=== PATIENT | female | born 1985 | race Caucasian/White ===

== ENCOUNTER 2016-12-09 08:58 | Emergency (ER) | payer OTHER ==
[2016-12-09 09:04] VITALS: TEMP 98.1; BMI 47.0
--- NOTE | 2016-12-09 09:28 | PDOC ---
History of Present Illness <Yevgeniy Grady - Last Filed: 12/09/16 14:23> - General History Source: Patient, Family Exam Limitations: No Limitations - History of Present Illness Initial Comments: 12/09/16 09:53 The patient is a 31 year old female with no significant past medical history, presenting to the Emergency Department with left arm numbness. The patient reports at 4:30AM she started experiencing left arm numbness, chest pressure, and difficulty breathing which woke her from sleep. She reports that she sat up from bed, and the change in position relieved her chest pressure and difficulty breathing. She reports that she continues to have numbness in the left arm, and tingling at the left fingers. She admits to taking a baby Aspirin at 4:30AM. She admits that she has not seen a doctor or PCP for years. She denies having the flu shot this season. The patients mother states that the patients grandmother and mother both have hypercholesterolemia and heart problems. The patients mother states that she had stents placed some time in her 40s. The patient denies palpitations, and diaphoresis. Patient denies nausea, vomiting, and diarrhea. Patient denies headache, dizziness, and change in vision. Patient denies change in strength or sensation to the face, right upper extremity, and lower extremities. Patient denies cough, fever, and chills. Past Medical Hx: hiatal hernia, enlarged liver and spleen Familial Hx: maternal cardiac stents in 40s, hypercholesterolemia <Rahel Villareal - Last Filed: 12/09/16 14:39> - General Chief Complaint: Pain Stated Complaint: CHEST PAIN/LT ARM NUMB Time Seen by Provider: 12/09/16 09:27 Past History - Past Medical History GI Disorders: Yes (HIATAL HERNIA) Disorders: (MOM DENIES PT HAVING ENLARGED LIVER AND SPLEEN) HTN: Yes (NO MEDS) Liver Disease: Yes (ENLARGED LIVER AND SPLEEN) - Immunization History Td Vaccination: Yes Immunization Up to Date: Yes - Psycho/Social/Smoking Cessation Hx Anxiety: No Suicidal Ideation: No Smoking Status: No Smoking History: Never smoked Have you smoked in the past 12 months: No Number of Cigarettes Smoked Daily: 0 Information on smoking cessation initiated: No Hx Alcohol Use: No Drug/Substance Use Hx: No Substance Use Type: None Hx Substance Use Treatment: No <Yevgeniy Grady - Last Filed: 12/09/16 14:23> <Rahel Villareal - Last Filed: 12/09/16 14:39> - Past Medical History Allergies/Adverse Reactions: Allergies Allergy/AdvReac Type Severity Reaction Status Date / Time No Known Drug Allergies Allergy Verified 12/09/16 09:00 Home Medications: Ambulatory Orders Pantoprazole Sodium 40 mg PO DAILY 12/09/16 Review of Systems - Review of Systems Able to Perform ROS?: Yes Comments:: 12/09/16 09:54 GENERAL/CONSTITUTIONAL: No fever or chills. No weakness. HEAD, EYES, EARS, NOSE AND THROAT: No change in vision. No ear pain or discharge. No sore throat. CARDIOVASCULAR: No chest pain or palpitations. RESPIRATORY: + orthopnea. No cough, wheezing, or hemoptysis. GASTROINTESTINAL: No nausea, vomiting, diarrhea or constipation. GENITOURINARY: No dysuria, frequency, or change in urination. MUSCULOSKELETAL: No joint or muscle swelling or pain. No neck or back pain. SKIN: No rash NEUROLOGIC: + left arm numbess, + tingling to left fingers. No headache, vertigo , loss of consciousness, or change in strength. ENDOCRINE: No increased thirst. No abnormal weight change. HEMATOLOGIC/LYMPHATIC: No anemia, easy bleeding, or history of blood clots. ALLERGIC/IMMUNOLOGIC: No hives or skin allergy. <Rahel Villareal - Last Filed: 12/09/16 14:39> *Physical Exam - Vital Signs Last Vital Signs Temp Pulse Resp BP Pulse Ox 98.1 F 76 18 143/76 100 12/09/16 09:00 12/09/16 09:00 12/09/16 09:00 12/09/16 09:00 12/09/16 09:00 <Yevgeniy Grady - Last Filed: 12/09/16 14:23> - Vital Signs Last Vital Signs Temp Pulse Resp BP Pulse Ox 98.1 F 76 18 143/76 100 12/09/16 09:00 12/09/16 09:00 12/09/16 09:00 12/09/16 09:00 12/09/16 09:00 - Physical Exam Comments: 12/09/16 09:55 GENERAL: Mildly obese female, awake, alert, and fully oriented, in no acute distress HEAD: No signs of trauma EYES: PERRLA, EOMI, sclera anicteric, conjunctiva clear ENT: Auricles normal inspection, hearing grossly normal, nares patent, oropharynx clear without exudates. Moist mucosa NECK: Normal ROM, supple, no lymphadenopathy, JVD, or masses LUNGS: Breath sounds equal, clear to auscultation bilaterally. No wheezes, and no crackles HEART: Regular rate and rhythm, normal S1 and S2, no murmurs, rubs or gallops ABDOMEN: Soft, nontender, normoactive bowel sounds. No guarding, no rebound. No masses EXTREMITIES: Normal range of motion, no edema. No clubbing or cyanosis. No cords, erythema, or tenderness NEUROLOGICAL: Cranial nerves II through XII grossly intact. Normal speech, normal gait SKIN: Warm, Dry, normal turgor, no rashes or lesions noted. <Rahel Villareal - Last Filed: 12/09/16 14:39> Heart Score/ECG Review #1 ECG reviewed & interpreted by me at: 10:00 (EKG reviewed by Dr. Grady, Impression: Normal sinus rhythm, possible anterior infarct, vent rate 73 bpm) <Rahel Villareal - Last Filed: 12/09/16 14:39> ED Treatment Course - LABORATORY CBC & Chemistry Diagram: 12/09/16 09:45 12/09/16 09:45 <Yevgeniy Grady - Last Filed: 12/09/16 14:23> - LABORATORY CBC & Chemistry Diagram: 12/09/16 09:45 12/09/16 09:45 - RADIOLOGY Radiograph Interpretation: 12/09/16 14:37 Chest/Thorax CT As reviewed by Dr. Richard Neumann Impression: No CT evidence of pulmonary embolism. There is no definite evidence of acute pathology. Minimal to mild splenomegaly is noted without interval change comparison to a 2012 CT study. <Rahel Villareal - Last Filed: 12/09/16 14:39> *DC/Admit/Observation/Transfer - Discharge Dispostion Admit: No - Attestations Physician Attestion: 12/09/16 09:28 I, Dr. Yevgeniy Grady, attest that this document has been prepared under my direction and personally reviewed by me in its entirety. I further attest, that it accurately reflects all work, treatment, procedures and medical decision -making performed by me. <Yevgeniy Grady Last Filed: 12/09/16 14:23> - Attestations Scribe Attestion: 12/09/16 09:56 Documentation prepared by Rahel Villareal, acting as medical case manager for Yevgeniy Grady MD/DO. <Rahel Villareal - Last Filed: 12/09/16 14:39> Diagnosis at time of Disposition: Chest pain, atypical - Discharge Dispostion Disposition: HOME Condition at time of disposition: Good - Referrals Referrals: Jose Luis Mccurdy MD [Primary Care Provider] - - Patient Instructions Printed Discharge Instructions: DI for Atypical Chest Pain Additional Instructions: Sissy- All of your tests today were OK, but because of your family history you should get a stress test- Call Dr. Ballesteros tomorrow morning to schedule the next available appointment for follow up. Return to us if worse or any problems. Best- Dr. Yevgeniy Grady
[2016-12-09] MEDS ORDERED: SODIUM CHLORIDE 1,000 ML IV SCH (09:45)
[2016-12-09 09:53] LABS: BASOPHIL 0.4 % (0-2.0); EOSINOPHIL 1.3 % (0-4.5); MCH 28.5 pg (25.7-33.7); MCHC 32.8 g/dl (32.0-36.0); MEAN CELL VOLUME 86.9 fl (80-96); MEAN PLT VOLUME 8.3 fl (7.5-11.1); NEUTROPHILS 75.1 % (42.8-82.8); PLATELET COUNT 240 K/MM3 (134-434); RDW 13.9 % (11.6-15.6)
[2016-12-09 10:05] LABS: INR 1.16 (0.82-1.09); PROTHROMBIN TIME (PATIENT) 12.8 SEC (9.98-11.88)
[2016-12-09 10:15] LABS: ALBUMIN 3.6 g/dl (3.4-5.0); ANION GAP 8 (8-16); BILIRUBIN,TOTAL 0.7 mg/dL (0.2-1.0); CALCIUM 8.2 mg/dL (8.5-10.1); CO2 30 mmol/L (21-32); CREATININE 0.6 mg/dL (0.55-1.02); GLUCOSE,RANDOM 94 mg/dL (74-106); MAGNESIUM 1.9 mg/dL (1.8-2.4); SGOT/AST 14 U/L (15-37); SGPT/ALT 22 U/L (12-78); TOT PROT 7.1 g/dl (6.4-8.2)
[2016-12-09 10:18] LABS: ALK PHOS 56 U/L (45-117); TROPONIN I < 0.02 ng/ml (0.00-0.05)
[2016-12-09 14:06] LABS: TROPONIN I < 0.02 ng/ml (0.00-0.05)
[2016-12-09 14:48] VITALS: BP 112/68; PULSE 78
--- NOTE | 2016-12-10 10:23 | EKG ---
Test Reason : Blood Pressure : / mmHG Vent. Rate : 073 BPM Atrial Rate : 073 BPM P-R Int : 182 ms QRS Dur : 110 ms QT Int : 442 ms P-R-T Axes : 037 003 020 degrees QTc Int : 486 ms NORMAL SINUS RHYTHM INCOMPLETE RBBB BORDERLINE ECG WHEN COMPARED WITH ECG OF 21-SEP-2011 08:45, NO SIGNIFICANT CHANGE WAS FOUND Confirmed by CARTER DENNISON MD ([id number]) on 12/10/2016 10:22:40 AM Referred By: Confirmed By:CARTER DENNISON MD
== END 2016-12-09 14:48 | disposition home or self-care (01) ==
LOC: JER 08:58
DX: R07.89 Other chest pain (principal); K76.9 Liver disease, unspecified
CPT/HCPCS: 36415; 71010-TC; 71275-TC; 80053; 82550; 83735; 84484; 84703; 85025; 85379; 85610; 86850; 86900; 86901; 93005; 93010; 99284-25

== ENCOUNTER 2019-01-01 07:04 | Inpatient (IN) | payer OTHER | END 2019-01-02 16:58 | disposition home or self-care (01) | LOC: JSAMEDAYSX 07:04 → J4S 14:38 ==

== ENCOUNTER 2022-11-28 09:51 | Emergency (ER) | payer OTHER ==
[2022-11-28 10:18] VITALS: BP 115/69; PULSE 68; RESP 16; TEMP 98.7; BMI 36.0
[2022-11-28 11:12] LABS: INR 1.11 (0.83-1.09); PROTHROMBIN TIME (PATIENT) 12.8 SEC (9.7-13.0)
[2022-11-28 11:17] LABS: HEMOGLOBIN 7.5 G/dL (10.7-15.3); MCH 20.1 pg (25.7-33.7); MCHC 29.8 g/dl (32.0-36.0); MEAN CELL VOLUME 67.5 fl (80-96); MEAN PLT VOLUME 9.2 fl (7.5-11.1); PLATELET COUNT 299.4 10^3/uL (134-434); WHITE BLOOD COUNT 4.8 10^3/uL (4.0-10.8)
[2022-11-28 11:23] LABS: PLATELET ESTIMATE ADEQUATE
[2022-11-28 11:25] LABS: ALBUMIN 3.9 g/dl (3.4-5.0); BILIRUBIN,TOTAL 0.7 mg/dl (0.2-1); CALCIUM 8.5 mg/dl (8.5-10); CREATININE 0.4 mg/dl (0.55-1.3); TOT PROT 7.3 g/dl (6.4-8.2)
== END 2022-11-28 12:21 | disposition home or self-care (01) ==
LOC: FER 09:51
DX: D64.9 Anemia, unspecified (principal)
CPT/HCPCS: 36415; 80053; 85027; 85610; 86850; 86900; 86901; 93005; 99284-25

== ENCOUNTER 2022-12-07 11:57 | Day surgery (SDC) | payer OTHER ==
[2022-12-07] MEDS ORDERED: FERRIC CARBOXYMALTOSE 750 MG in SODIUM CHLORIDE 250 ML IVPB ONE (12:30)
[2022-12-07 13:39] VITALS: BP 122/65; PULSE 65; RESP 18; TEMP 98.7
== END 2022-12-07 13:47 | disposition home or self-care (01) ==
LOC: FM/S 11:57 → FINFUSION 11:57
PROVIDERS: ATTEND Family Medicine
PROC: 3E033GC Introduction of Other Therapeutic Substance into Peripheral Vein, Percutaneous Approach (ICD-10-PCS; principal; 2022-12-07)
DX: D50.9 Iron deficiency anemia, unspecified (principal)
CPT/HCPCS: 96365; J1439

== ENCOUNTER 2022-12-10 10:48 | Observation (INO) | payer OTHER ==
[2022-12-10] MEDS ORDERED: ONDANSETRON 4 MG/2 ML VIAL IVPUSH ONE (12:12)
[2022-12-10] MEDS ORDERED: FAMOTIDINE 20 MG/50 ML IVPB 20 MG/50 ML MG IVPB ONE ×2 (12:12→12:28)
[2022-12-10] MEDS ORDERED: MAG HYDROX/AL HYDROX/SIMETH 30 ML UNIT-DOSE CUP PO ONE (12:12)
[2022-12-10] MEDS ORDERED: SODIUM CHLORIDE 0.9% 500 ML INFUS.BAG IV ONE (12:12)
[2022-12-10] MEDS ORDERED: MAG HYDROX/AL HYDROX/SIMETH 30 ML UNIT-DOSE CUP ONE (12:28)
[2022-12-10] MEDS ORDERED: ONDANSETRON 4 MG/2 ML VIAL ONE (12:28)
[2022-12-10 13:00] LABS: BASO % 0.7 % (0-2.0); EOS % 0.1 % (0-4.5); HEMATOCRIT 25.2 % (32.4-45.2); HEMOGLOBIN 7.5 GM/dL (10.7-15.3); LYMPH % 4.1 % (8-40); MCHC 29.9 g/dl (32.0-36.0); MEAN CELL VOLUME 64.6 fl (80-96); MEAN PLT VOLUME 8.1 fl (7.5-11.1); MONO % 7.4 % (3.8-10.2); NEUT % 87.7 % (42.8-82.8); PLATELET COUNT 215 10^3/uL (134-434); RDW 17.5 % (11.6-15.6); WHITE BLOOD COUNT 8.9 K/mm3 (4.0-10.0)
[2022-12-10 13:01] LABS: MCH 19.3 pg (25.7-33.7)
[2022-12-10 13:08] LABS: INR 1.35 (0.83-1.09); PROTHROMBIN TIME (PATIENT) 15.6 SEC (9.7-13.0)
[2022-12-10 13:11] LABS: ACTIVATED PTT 25.7 SECONDS (25.2-36.5)
[2022-12-10 13:23] LABS: POTASSIUM 3.8 mmol/L (3.5-5.1)
[2022-12-10 13:25] LABS: ALBUMIN 3.7 g/dl (3.4-5.0); BLOOD UREA NITROGEN 7.1 mg/dL (7-18); CALCIUM 8.9 mg/dL (8.5-10.1)
[2022-12-10 13:28] LABS: CREATININE 0.5 mg/dL (0.55-1.3)
[2022-12-10 13:30] LABS: BILIRUBIN,TOTAL 0.8 mg/dL (0.2-1); TOT PROT 7.4 g/dl (6.4-8.2)
[2022-12-10 19:22] LABS: ANISOCYTOSIS 2+; MACROCYTOSIS 0; PLATELET ESTIMATE NORMAL
[2022-12-10] MEDS: ACETAMINOPHEN 325 MG TABLET (FP) PO PRN (21:24)
[2022-12-10 22:55] VITALS: RESP 18
[2022-12-10 23:04] VITALS: BMI 37.0
[2022-12-10 23:42] LABS: EPI CELLS 10 /uL (0-25.1); HYALINE CASTS 0 /uL (0-3.1); URINE APPEARANCE CLEAR; URINE BACTERIA 1822 /uL (0-1359); URINE BILIRUBIN NEGATIVE (NEGATIVE); URINE COLOR YELLOW; URINE GLUCOSE (UA) NEGATIVE (NEGATIVE); URINE KETONE TRACE (NEGATIVE); URINE LEUK ESTERASE TRACE (NEGATIVE); URINE NITRITE NEGATIVE (NEGATIVE); URINE PROTEIN NEGATIVE (NEGATIVE); URINE RBC 7 /uL (0-23.9); URINE UROBILINOGEN 0.2 mg/dL (0.2-1.0); URINE WBC 35 /uL (0-25.8)
[2022-12-11] MEDS: PANTOPRAZOLE 40 MG TABLET PO SCH ×2 (10:00→10:15)
[2022-12-11] MEDS: ACETAMINOPHEN 325 MG TABLET (FP) PO PRN ×2 (12:20→17:24)
[2022-12-11 13:06] LABS: EOS % 0.5 % (0-4.5); HEMATOCRIT 26.3 % (32.4-45.2); HEMOGLOBIN 7.8 GM/dL (10.7-15.3); LYMPH % 17.7 % (8-40); MCHC 29.7 g/dl (32.0-36.0); MEAN CELL VOLUME 67.5 fl (80-96); MEAN PLT VOLUME 7.7 fl (7.5-11.1); MONO % 9.4 % (3.8-10.2); NEUT % 71.4 % (42.8-82.8); PLATELET COUNT 198 10^3/uL (134-434); RDW 18.5 % (11.6-15.6); WHITE BLOOD COUNT 5.2 K/mm3 (4.0-10.0)
[2022-12-11 13:27] LABS: POTASSIUM 3.7 mmol/L (3.5-5.1)
[2022-12-11 13:28] LABS: CALCIUM 8.2 mg/dL (8.5-10.1)
[2022-12-11 13:30] LABS: ALBUMIN 3.4 g/dl (3.4-5.0); BLOOD UREA NITROGEN 6.9 mg/dL (7-18)
[2022-12-11 13:32] LABS: CREATININE 0.6 mg/dL (0.55-1.3)
[2022-12-11 13:33] LABS: BILIRUBIN,TOTAL 0.7 mg/dL (0.2-1); TOT PROT 7.1 g/dl (6.4-8.2)
[2022-12-11] MEDS: ONDANSETRON 4 MG/2 ML VIAL IVPUSH PRN (16:53)
[2022-12-12] MEDS ORDERED: CYANOCOBALAMIN (VITAMIN B-12) 1000 MCG/1 ML VIAL IM ONE (09:04)
[2022-12-12] MEDS: PANTOPRAZOLE 40 MG TABLET PO SCH (10:28)
[2022-12-12] MEDS: ONDANSETRON 4 MG/2 ML VIAL IVPUSH PRN (10:29)
[2022-12-12 11:13] LABS: BASO % 0.4 % (0-2.0); EOS % 1.6 % (0-4.5); HEMATOCRIT 29.7 % (32.4-45.2); HEMOGLOBIN 9.2 GM/dL (10.7-15.3); LYMPH % 19.3 % (8-40); MEAN CELL VOLUME 67.6 fl (80-96); MEAN PLT VOLUME 8.6 fl (7.5-11.1); MONO % 7.3 % (3.8-10.2); NEUT % 71.4 % (42.8-82.8); PLATELET COUNT 227 10^3/uL (134-434); RBC 4.39 M/mm3 (3.60-5.2); WHITE BLOOD COUNT 5.5 K/mm3 (4.0-10.0)
[2022-12-12] MEDS: ACETAMINOPHEN 325 MG TABLET (FP) PO PRN (11:44)
[2022-12-12 14:07] LABS: INSULIN 6.3 uIU/mL (2.6-24.9)
[2022-12-12 14:59] VITALS: BP 111/62; PULSE 62; TEMP 98.3
== END 2022-12-12 18:12 | disposition home or self-care (01) ==
LOC: JER 10:48 → JERBED 14:18 → J4W 19:34
PROVIDERS: ADMIT Family Medicine; ATTEND Family Medicine
PROC: 3E033GC Introduction of Other Therapeutic Substance into Peripheral Vein, Percutaneous Approach (ICD-10-PCS; principal; 2022-12-10)
PROC: 3E0337Z Introduction of Electrolytic and Water Balance Substance into Peripheral Vein, Percutaneous Approach (ICD-10-PCS; 2022-12-10)
DX: R55 Syncope and collapse (principal); D50.9 Iron deficiency anemia, unspecified; K21.9 Gastro-esophageal reflux disease without esophagitis; R10.13 Epigastric pain; R51.9 Headache, unspecified; R00.2 Palpitations; E66.9 Obesity, unspecified; Z68.37 Body mass index [BMI] 37.0-37.9, adult; Z98.84 Bariatric surgery status; Z88.1 Allergy status to other antibiotic agents
CPT/HCPCS: 0241U-QW; 36415; 36430; 70450-TC; 73610-TC-LT-FY; 80053; 81003; 82607; 82962; 83036; 83525; 83540; 83550; 84439; 84443; 84481; 84484; 84703; 85025; 85610; 85730; 86850; 86900; 86901; 86922; 87086; 93005; 93010; 93306-TC; 95816; 96365; 96372; 96375; 96376; 99285-25; G0378; P9058

== ENCOUNTER 2023-09-09 10:18 | Emergency (ER) | payer OTHER ==
[2023-09-09 10:31] VITALS: TEMP 97.9; BMI 36.0
[2023-09-09 12:38] LABS: BASO % 0.5 % (0-2.0); EOS % 0.9 % (0-4.5); HEMATOCRIT 33.6 % (32.4-45.2); HEMOGLOBIN 10.7 GM/dL (10.7-15.3); LYMPH % 20.8 % (8-40); MCH 25.6 pg (25.7-33.7); MEAN CELL VOLUME 80.1 fl (80-96); MEAN PLT VOLUME 8.1 fl (7.5-11.1); MONO % 5.9 % (3.8-10.2); NEUT % 71.9 % (42.8-82.8); PH,URINE 7.5 (5.0-8.0); PLATELET COUNT 314 10^3/uL (134-434); URINE APPEARANCE CLEAR; URINE BILIRUBIN NEGATIVE (NEGATIVE); URINE COLOR YELLOW; URINE GLUCOSE (UA) NEGATIVE (NEGATIVE); URINE KETONE NEGATIVE (NEGATIVE); URINE LEUK ESTERASE NEGATIVE (NEGATIVE); URINE NITRITE NEGATIVE (NEGATIVE); URINE PROTEIN NEGATIVE (NEGATIVE); URINE UROBILINOGEN 0.2 mg/dL (0.2-1.0); WHITE BLOOD COUNT 7.1 K/mm3 (4.0-10.0)
[2023-09-09 12:57] LABS: ALBUMIN 3.9 g/dl (3.4-5.0); BLOOD UREA NITROGEN 8.5 mg/dL (7-18); CALCIUM 8.6 mg/dL (8.5-10.1)
[2023-09-09 13:01] LABS: CREATININE 0.7 mg/dL (0.55-1.3)
[2023-09-09 13:02] LABS: BILIRUBIN,TOTAL 0.5 mg/dL (0.2-1); TOT PROT 7.7 g/dl (6.4-8.2)
[2023-09-09 14:20] VITALS: BP 136/76; PULSE 72; RESP 18
== END 2023-09-09 14:20 | disposition home or self-care (01) ==
LOC: JER 10:18
DX: R53.1 Weakness (principal); E16.2 Hypoglycemia, unspecified; M54.2 Cervicalgia; R42 Dizziness and giddiness; Z20.822 Contact with and (suspected) exposure to COVID-19
CPT/HCPCS: 0241U-QW; 36415; 71045-TC-FY; 80053; 81003; 82962; 84703; 85025; 87086; 93005; 93010; 99285-25

== ENCOUNTER 2023-10-08 11:20 | Observation (INO) | payer OTHER ==
[2023-10-08 11:40] VITALS: BMI 37.3
[2023-10-08] MEDS ORDERED: METOCLOPRAMIDE HCL INJECTION 10 MG/2 ML VIAL ONE (12:59)
[2023-10-08] MEDS: SODIUM CHLORIDE 0.9% 500 ML INFUS.BAG IV ONE (13:40)
[2023-10-08] MEDS: METOCLOPRAMIDE HCL INJECTION 10 MG/2 ML VIAL IVPUSH ONE (13:40)
[2023-10-08 14:00] LABS: BASO % 0.3 % (0-2.0); EOS % 1.3 % (0-4.5); HEMATOCRIT 31.3 % (32.4-45.2); HEMOGLOBIN 10.1 GM/dL (10.7-15.3); LYMPH % 20.1 % (8-40); MCH 25.3 pg (25.7-33.7); MCHC 32.4 g/dl (32.0-36.0); MEAN CELL VOLUME 78.2 fl (80-96); MEAN PLT VOLUME 8.2 fl (7.5-11.1); MONO % 5.6 % (3.8-10.2); NEUT % 72.7 % (42.8-82.8); PLATELET COUNT 309 10^3/uL (134-434); RDW 15.5 % (11.6-15.6); WHITE BLOOD COUNT 6.7 K/mm3 (4.0-10.0)
[2023-10-08 14:18] LABS: ALBUMIN 3.9 g/dl (3.4-5.0); BLOOD UREA NITROGEN 8.2 mg/dL (7-18); CALCIUM 8.8 mg/dL (8.5-10.1); MAGNESIUM 2.1 mg/dL (1.8-2.4)
[2023-10-08 14:21] LABS: PHOSPHOROUS 3.8 mg/dL (2.5-4.9)
[2023-10-08 14:22] LABS: CREATININE 0.6 mg/dL (0.55-1.3)
[2023-10-08 14:23] LABS: BILIRUBIN,TOTAL 0.5 mg/dL (0.2-1)
[2023-10-08 14:24] LABS: TOT PROT 7.6 g/dl (6.4-8.2)
[2023-10-08 18:46] VITALS: RESP 18
[2023-10-09 07:38] LABS: BASO % 0.6 % (0-2.0); EOS % 2.2 % (0-4.5); HEMATOCRIT 29.6 % (32.4-45.2); HEMOGLOBIN 9.3 GM/dL (10.7-15.3); LYMPH % 21.2 % (8-40); MCH 24.8 pg (25.7-33.7); MCHC 31.3 g/dl (32.0-36.0); MEAN CELL VOLUME 79.3 fl (80-96); MEAN PLT VOLUME 8.3 fl (7.5-11.1); MONO % 8.1 % (3.8-10.2); NEUT % 67.9 % (42.8-82.8); PLATELET COUNT 235 10^3/uL (134-434); RBC 3.73 M/mm3 (3.60-5.2); RDW 15.3 % (11.6-15.6); WHITE BLOOD COUNT 5.3 K/mm3 (4.0-10.0)
[2023-10-09 07:44] LABS: POTASSIUM 4.2 mmol/L (3.5-5.1)
[2023-10-09 08:06] LABS: CALCIUM 8.8 mg/dL (8.5-10.1)
[2023-10-09 08:07] LABS: BLOOD UREA NITROGEN 7.4 mg/dL (7-18); MAGNESIUM 2.1 mg/dL (1.8-2.4)
[2023-10-09 08:10] LABS: CREATININE 0.5 mg/dL (0.55-1.3)
[2023-10-09 08:11] LABS: BILIRUBIN,TOTAL 0.7 mg/dL (0.2-1); TOT PROT 6.4 g/dl (6.4-8.2)
[2023-10-09 08:27] LABS: ALBUMIN 3.1 g/dl (3.4-5.0)
[2023-10-09 11:29] LABS: RETICULOCYTES 0.93 % (0.5-1.5)
[2023-10-09] MEDS ORDERED: IRON SUCROSE INJECTION 200 MG in SODIUM CHLORIDE 100 ML IVPB ONE (17:00)
[2023-10-09 22:10] VITALS: PULSE 63
[2023-10-10 07:14] VITALS: BP 106/64; TEMP 97.3
== END 2023-10-10 09:19 | disposition home or self-care (01) ==
LOC: JER 11:20 → JERBED 12:27 → J7W 17:59
PROVIDERS: ADMIT Internal Medicine; ATTEND Internal Medicine
PROC: 3E033GC Introduction of Other Therapeutic Substance into Peripheral Vein, Percutaneous Approach (ICD-10-PCS; principal; 2023-10-08)
PROC: 3E0337Z Introduction of Electrolytic and Water Balance Substance into Peripheral Vein, Percutaneous Approach (ICD-10-PCS; 2023-10-08)
DX: E16.1 Other hypoglycemia (principal); D13.7 Benign neoplasm of endocrine pancreas; D50.9 Iron deficiency anemia, unspecified; E66.9 Obesity, unspecified; K21.9 Gastro-esophageal reflux disease without esophagitis; N92.0 Excessive and frequent menstruation with regular cycle; F41.9 Anxiety disorder, unspecified; D37.8 Neoplasm of uncertain behavior of other specified digestive organs; K91.1 Postgastric surgery syndromes
CPT/HCPCS: 0241U-QW; 36415; 74176-TC; 80053; 80307; 82024; 82272; 82533; 82728; 82962; 83525; 83527; 83540; 83550; 83735; 83970; 84100; 84443; 84466; 84681; 84703; 85025; 85045; 93005; 93010; 96374; 99285-25; G0378

== ENCOUNTER 2024-09-25 11:46 | Day surgery (SDC) | payer OTHER ==
[2024-09-25] MEDS ORDERED: diphenhydrAMINE HCL 50 MG CAPSULE PO PRN (12:17)
[2024-09-25] MEDS ORDERED: HYDROCORTISONE SOD SUCCINATE 100 MG/2 ML VIAL IVPUSH PRN (12:18)
[2024-09-25] MEDS: IRON SUCROSE INJECTION 200 MG in SODIUM CHLORIDE 100 ML IVPB ONE (12:33)
[2024-09-25 15:04] VITALS: BP 105/60; PULSE 69; RESP 16; TEMP 98.3
== END 2024-09-25 15:04 | disposition home or self-care (01) ==
LOC: FINFUSION 11:46 → FM/S 11:50 → FINFUSION 15:04
PROVIDERS: ATTEND Internal Medicine Gastroenterology
PROC: 3E033GC Introduction of Other Therapeutic Substance into Peripheral Vein, Percutaneous Approach (ICD-10-PCS; principal; 2024-09-25)
DX: D50.9 Iron deficiency anemia, unspecified (principal)
CPT/HCPCS: 96365; 96366; J1756

== ENCOUNTER 2024-10-02 11:57 | Day surgery (SDC) | payer OTHER ==
[2024-10-02] MEDS ORDERED: diphenhydrAMINE HCL 25 MG CAPSULE (FP) PO ONE (12:15)
[2024-10-02] MEDS ORDERED: HYDROCORTISONE SOD SUCCINATE 100 MG/2 ML VIAL IVPB PRN (12:18)
[2024-10-02 12:27] VITALS: TEMP 98.1
[2024-10-02] MEDS: diphenhydrAMINE HCL 50 MG CAPSULE PO PRN (12:30)
[2024-10-02] MEDS: IRON SUCROSE INJECTION 200 MG in SODIUM CHLORIDE 100 ML IVPB ONE (12:35)
[2024-10-02 14:29] VITALS: BP 98/60; PULSE 58; RESP 18
== END 2024-10-02 14:44 | disposition home or self-care (01) ==
LOC: FINFUSION 11:57 → FM/S 11:58 → FINFUSION 14:44
PROVIDERS: ATTEND Internal Medicine Gastroenterology
PROC: 3E033GC Introduction of Other Therapeutic Substance into Peripheral Vein, Percutaneous Approach (ICD-10-PCS; principal; 2024-10-02)
DX: D50.9 Iron deficiency anemia, unspecified (principal)
CPT/HCPCS: 96365; 96366; J1756

== ENCOUNTER 2024-10-09 12:16 | Day surgery (SDC) | payer OTHER ==
[2024-10-09] MEDS ORDERED: diphenhydrAMINE HCL 50 MG CAPSULE PO PRN (12:30)
[2024-10-09] MEDS ORDERED: HYDROCORTISONE SOD SUCCINATE 100 MG/2 ML VIAL IVPB PRN (12:31)
[2024-10-09] MEDS: diphenhydrAMINE HCL 50 MG CAPSULE PO ONE (13:05)
[2024-10-09] MEDS: IRON SUCROSE INJECTION 200 MG in SODIUM CHLORIDE 100 ML IVPB ONE (13:07)
[2024-10-09 15:30] VITALS: BP 110/58; PULSE 65; RESP 16; TEMP 98.4
== END 2024-10-09 15:25 | disposition home or self-care (01) ==
LOC: FINFUSION 12:16 → FM/S 12:17 → FINFUSION 15:25
PROVIDERS: ATTEND Internal Medicine Gastroenterology
PROC: 3E033GC Introduction of Other Therapeutic Substance into Peripheral Vein, Percutaneous Approach (ICD-10-PCS; principal; 2024-10-09)
DX: D50.9 Iron deficiency anemia, unspecified (principal)
CPT/HCPCS: 96365; J1756

== ENCOUNTER 2024-10-16 12:39 | Day surgery (SDC) | payer OTHER ==
[2024-10-16] MEDS: IRON SUCROSE INJECTION 200 MG in SODIUM CHLORIDE 100 ML IVPB ONE (13:05)
[2024-10-16] MEDS: diphenhydrAMINE HCL 50 MG CAPSULE PO ONE (13:07)
[2024-10-16 15:14] VITALS: BP 102/59; PULSE 80; RESP 16; TEMP 97.2
== END 2024-10-16 15:14 | disposition home or self-care (01) ==
LOC: FM/S 12:39 → FINFUSION 12:39
PROVIDERS: ATTEND Internal Medicine Gastroenterology
PROC: 3E033GC Introduction of Other Therapeutic Substance into Peripheral Vein, Percutaneous Approach (ICD-10-PCS; principal; 2024-10-16)
DX: D50.9 Iron deficiency anemia, unspecified (principal)
CPT/HCPCS: 96365; J1756

== ENCOUNTER 2025-01-26 06:34 | Day surgery (SDC) | payer OTHER ==
[2025-01-22 18:02] VITALS: BMI 37.5
[2025-01-26] MEDS ORDERED: LIDOCAINE HCL 1%, 10 MG/ML (20ML VIAL) ONE (07:32)
[2025-01-26] MEDS ORDERED: BUPIVACAINE HCL/PF 0.5% (5MG/ML) 10 ML VIAL ONE (07:32)
[2025-01-26] MEDS ORDERED: PROPOFOL 20 ML ONE ×2 (07:40→08:37)
[2025-01-26] MEDS ORDERED: MIDAZOLAM HCL 2 MG/2 ML SINGLE DOSE VIAL ONE (07:41)
[2025-01-26] MEDS ORDERED: SUCCINYLCHOLINE CHLORIDE 200 MG/10 ML SYRINGE ONE (07:41)
[2025-01-26] MEDS ORDERED: LIDOCAINE HCL/PF 2% SDV 5ML VIAL ONE (08:29)
[2025-01-26] MEDS ORDERED: ceFAZolin SODIUM 1 GM VIAL ONE (08:42)
[2025-01-26] MEDS ORDERED: ROCURONIUM BROMIDE 50 MG/5 ML SYRINGE ONE (08:42)
[2025-01-26] MEDS ORDERED: DEXAMETHASONE SOD PHOSPHATE 4 MG/1 ML VIAL ONE (08:43)
[2025-01-26] MEDS ORDERED: ONDANSETRON 4 MG/2 ML VIAL ONE (08:43)
[2025-01-26] MEDS ORDERED: KETOROLAC TROMETHAMINE 30 MG/1 ML VIAL ONE (08:43)
[2025-01-26] MEDS: ceFAZolin SODIUM 1 GM VIAL IVPB ONE (08:45)
[2025-01-26] MEDS: LIDOCAINE HCL 1%, 10 MG/ML (20ML VIAL) INF ONE (09:11)
[2025-01-26] MEDS: BUPIVACAINE HCL/PF 0.5% (5MG/ML) 10 ML VIAL IJ ONE (09:11)
[2025-01-26] MEDS ORDERED: SUGAMMADEX SODIUM 200 MG/2 ML VIAL ONE (09:19)
[2025-01-26] MEDS ORDERED: BACITRACIN ZINC 15 GM TUBE TOPICAL OINTMENT ONE (09:44)
[2025-01-26] MEDS: BACITRACIN ZINC 15 GM TUBE TOPICAL OINTMENT TP ONE (09:48)
[2025-01-26] MEDS ORDERED: oxyCODONE HCL 5 MG TABLET PO PRN (10:23)
[2025-01-26] MEDS ORDERED: ONDANSETRON 4 MG/2 ML VIAL IVPUSH PRN (10:23)
[2025-01-26] MEDS ORDERED: LACTATED RINGERS SOLUTION 1,000 ML IV SCH (10:30)
[2025-01-26] MEDS: ACETAMINOPHEN 1000 MG/100 ML BAG IVPB ONE (10:45)
[2025-01-26 11:37] VITALS: RESP 16
[2025-01-26 12:45] VITALS: BP 115/74; PULSE 80; TEMP 98.2
== END 2025-01-26 12:58 | disposition home or self-care (01) ==
LOC: JASU-SURG 06:34
PROVIDERS: ATTEND Surgery
PROC: 0JB90ZZ Excision of Buttock Subcutaneous Tissue and Fascia, Open Approach (ICD-10-PCS; principal; 2025-01-26 08:00)
DX: L73.2 Hidradenitis suppurativa (principal)
CPT/HCPCS: 88304-TC; 94760

== ENCOUNTER 2025-03-18 12:21 | Day surgery (SDC) | payer OTHER ==
[2025-03-18] MEDS: IRON SUCROSE INJECTION 200 MG in SODIUM CHLORIDE 100 ML IVPB ONE (12:59)
[2025-03-18 15:19] VITALS: BP 102/78; PULSE 81; RESP 18; TEMP 98.2
== END 2025-03-18 15:20 | disposition home or self-care (01) ==
LOC: FINFUSION 12:21 → FM/S 12:22 → FINFUSION 15:20
PROVIDERS: ATTEND Internal Medicine Gastroenterology
PROC: 3E033GC Introduction of Other Therapeutic Substance into Peripheral Vein, Percutaneous Approach (ICD-10-PCS; principal; 2025-03-18)
DX: D50.9 Iron deficiency anemia, unspecified (principal)
CPT/HCPCS: 96365; J1756

== ENCOUNTER 2025-04-08 12:35 | Day surgery (SDC) | payer OTHER ==
[2025-04-08] MEDS: IRON SUCROSE INJECTION 200 MG in SODIUM CHLORIDE 100 ML IVPB ONE (13:09)
[2025-04-08 16:02] VITALS: BP 122/70; PULSE 82; RESP 19; TEMP 97.7
== END 2025-04-08 14:20 | disposition home or self-care (01) ==
LOC: FINFUSION 12:35 → FM/S 12:39 → FINFUSION 14:20
PROVIDERS: ATTEND Internal Medicine Gastroenterology
PROC: 3E033GC Introduction of Other Therapeutic Substance into Peripheral Vein, Percutaneous Approach (ICD-10-PCS; principal; 2025-04-08)
DX: D50.9 Iron deficiency anemia, unspecified (principal)
CPT/HCPCS: 96365; J1756